=== PATIENT | female | born 1940 | race Caucasian/White ===

== ENCOUNTER 2016-07-20 08:07 | Day surgery (SDC) | payer MEDICARE, OTHER ==
[~2016-07-20] VITALS: Ht 167.6 cm; Wt 114.8 kg
[2016-07-20 08:50] VITALS: BP 171/85; PULSE 87; TEMP 98
[2016-07-20] MEDS ORDERED: PROTONIX 40MG T40 MG PO (08:54)
[2016-07-20] MEDS ORDERED: THEO-24 20200 MG/CAP PO (08:55)
[2016-07-20] MEDS ORDERED: NORVASC 5MG5 MG/TAB PO (08:55)
[2016-07-20] MEDS ORDERED: RT SPIRIVA18 MCG IH (08:56)
[2016-07-20] MEDS ORDERED: CALCIUM 600-D 61 TAB PO (08:56)
[2016-07-20] MEDS ORDERED: BROVANA15 MCG/2 M (08:56)
[2016-07-20] MEDS ORDERED: VITAMIN D 1001000 IU PO (08:57)
[2016-07-20] MEDS ORDERED: ZYRTEC 10MG10 MG PO (08:57)
[2016-07-20] MEDS ORDERED: TYLENOL 8 HR PO (08:58)
[2016-07-20] MEDS ORDERED: COSOPT 2%-0.5%10 ML OS (09:00)
[2016-07-20] MEDS ORDERED: [UNRECOGNIZED DRUG - OTHER] (09:00)
[2016-07-20 11:35] VITALS: BP 145/69; PULSE 81; TEMP 97.7
[2016-07-20 11:50] VITALS: BP 141/64; PULSE 85
[2016-07-20 12:05] VITALS: BP 128/69; PULSE 81
[2016-07-20 13:36] VITALS: BP 136/63; PULSE 79
== END 2016-07-20 12:10 | disposition home or self-care (01) ==
LOC: SDCO 08:07
DX: Z12.11 Encounter for screening for malignant neoplasm of colon (principal); K57.30 Diverticulosis of large intestine without perforation or abscess without bleeding; K64.0 First degree hemorrhoids; I10 Essential (primary) hypertension
CPT/HCPCS: J2250; J3010; J7030